=== PATIENT | male | born 1960 | race Caucasian/White ===

== ENCOUNTER 2020-08-19 09:24 | Outpatient (CLI) | payer OTHER, SELFPAY ==
--- NOTE | ~2020-08-19 | CT_ITS ---
EXAMINATION: CT diagnostic chest wo con DATE: 08/19/2020 09:46 INDICATION: Hypoxia TECHNIQUE: Computed tomography (CT) of the chest was performed without intravenous contrast. Automate d exposure control and iterative reconstruction technique were employed. Exam dose: 160.01 mGy-cm to karolina exam DLP. COMPARISON: 03/17/2018 2 view chest FINDINGS: Normal heart size. Coronary artery calcifications. Normal caliber of the thoracic aorta. No pericardial or pleural effusion. No hilar or mediastinal mass lesion or lymphadenopathy. Calcified right hilar nodes and calcified rig ht lower lobe pulmonary granuloma, consistent with old granulomatous disease. There is focal irregular density in the lateral right upper lung with adjacent pleural tenting, like ly right upper lobe scarring. Six month follow up [address] thorax should be considered. There is discoid atelectasis and/or scarring in the middle lobe, lingula and lower lobes. Bilateral hyperinflation. No pulmonary infiltrate or consolidation or pulmonary mass lesion is detected. Degenerative changes of the thoracic and lumbar spine. No suspicious osteolytic or osteoblastic lesio ns. IMPRESSION: Bilateral hyperinflation Probable bilateral pulmonary scarring; [address] thorax should be considered to document s tability Reviewed, dictated and finalized at [facility]. Reviewed, dictated and finalized at [facility]. IMPRESSION: Bilateral hyperinflation Probable bilateral pulmonary scarring; [address] thorax should be co nsidered to document stability
== END 2020-08-19 09:25 | disposition home or self-care (01) ==
LOC: ANHIMG 09:26
PROVIDERS: PCP Physician Assistant; Visit Provider Physician Assistant
DX: J43.8 Other emphysema (principal); R09.02 Hypoxemia; R91.8 Other nonspecific abnormal finding of lung field
CPT/HCPCS: 71250